=== PATIENT | male | born 1990 | race Caucasian/White ===

== ENCOUNTER 2017-02-20 12:26 | Emergency (ER) | payer MEDICAID ==
[2017-02-20 12:33] VITALS: BP 125/83
[2017-02-20] MEDS ORDERED: HYDROcodone-ACET 10/325MG TAB PO ONE (14:00)
== END 2017-02-20 14:01 | disposition left against medical advice (07) ==
LOC: ER 12:26
DX: S39.012A Strain of muscle, fascia and tendon of lower back, initial encounter (principal); V49.49XA Driver injured in collision with other motor vehicles in traffic accident, initial encounter; Y93.89 Activity, other specified; Y99.8 Other external cause status; Y92.410 Unspecified street and highway as the place of occurrence of the external cause
CPT/HCPCS: 70450; 72100; 80307

== ENCOUNTER 2022-04-04 04:43 | Emergency (ER) | payer MEDICAID ==
[~2022-04-04] VITALS: Ht 175.3 cm; Wt 81.6 kg
[2022-04-04 04:53] VITALS: BP 120/79
== END 2022-04-04 05:00 ==
LOC: ER 04:43
DX: S00.81XA Abrasion of other part of head, initial encounter (principal); X58.XXXA Exposure to other specified factors, initial encounter; Y93.89 Activity, other specified; Y92.89 Other specified places as the place of occurrence of the external cause; Y99.8 Other external cause status